=== PATIENT | female | born 1930 | race Caucasian/White ===

== ENCOUNTER 2018-05-22 21:11 | Inpatient (IN) | payer OTHER ==
[~2018-05-22] VITALS: Ht 152.4 cm; Wt 37.7 kg
[~2018-05-22 21:11] MED LIST: CLINDAMYCIN300 M1 PO; CORGARD80 MG PO; COUMADIN1 MG PO; COUMADIN2 MG PO; LAC PO; LASIX20 MG PO; LEVAQUIN750 MG PO; NORCO1 TA2 PO; POTASSIUM CHLO20 MEQ PO; PRILOSEC20 MG PO; SEROQUEL25 MG PO; STALEVO PO
[2018-05-22 21:16] VITALS: Ht 152.4 cm; Wt 37.7 kg
[2018-05-22 22:10] LABS: BASOPHIL % 0.3 % (0-2); PLATELET COUNT 171 x10^3mcL (130-400); RED CELL DISTRIBUTION WIDTH 14.4 % (11.5-14.5)
[2018-05-22 22:36] LABS: CALCIUM 7.9 mg/dL (8.5-10.1); CARBON DIOXIDE 28.5 mmol/L (21-32); CHLORIDE SERUM 93 mmol/L (98-107); CREATININE SERUM 0.9 mg/dL (0.6-1.0); GLUCOSE SERUM 85 mg/dL (74-106); POTASSIUM SERUM 4.1 mmol/L (3.5-5.1); SODIUM SERUM 128 mmol/L (136-145)
[2018-05-22 22:49] LABS: ALBUMIN 2.8 g/dL (3.4-5.0); ALKALINE PHOSPHATASE 64 U/L (46-116); ALT/SGPT 11 U/L (14-59); AST/SGOT 28 U/L (15-37); BILIRUBIN TOTAL 0.48 mg/dL (0.20-1.00); LIPASE 217 IU/L (73-393); TOTAL PROTEIN, SERUM 5.7 g/dL (6.4-8.2)
[2018-05-22] MEDS ORDERED: SEROQUEL25 MG (23:13)
[2018-05-23] VITALS (7 sets, daily range): BP systolic 132–166; BP diastolic 61–107
[2018-05-23 00:03] LABS: PHOSPHOROUS 3.9 mg/dL (2.5-4.9)
[2018-05-23 00:08] LABS: T3 TOTAL 0.71 ng/mL
[2018-05-23 00:09] LABS: FREE T4 1.31 ng/dL (0.76-1.46); FREE THYROXINE INDEX 2.8 ug/dL (1.4-4.5); T4(THYROXINE) 7.4 ug/dL (4.7-13.3)
[2018-05-23 00:13] LABS: microscopic required? YES; urine erythrocyte TRACE (NEGATIVE)
[2018-05-23 00:25] LABS: AMPHETAMINE QUAL UR NONE DETECTED (See below)
[2018-05-23 06:40] LABS: BASOPHIL % 0.1 % (0-2); PLATELET COUNT 180 x10^3mcL (130-400); RED CELL DISTRIBUTION WIDTH 13.3 % (11.5-14.5)
[2018-05-23 06:55] LABS: CARBON DIOXIDE 24.3 mmol/L (21-32); CHLORIDE SERUM 95 mmol/L (98-107); CREATININE SERUM 0.8 mg/dL (0.6-1.0); GLUCOSE SERUM 77 mg/dL (74-106); MAGNESIUM 1.9 mg/dL (1.8-2.4); PHOSPHOROUS 3.6 mg/dL (2.5-4.9); POTASSIUM SERUM 3.9 mmol/L (3.5-5.1); SODIUM SERUM 130 mmol/L (136-145)
[2018-05-24 05:11] VITALS: BP 174/82
[2018-05-24 07:13] LABS: CALCIUM 7.9 mg/dL (8.5-10.1); CARBON DIOXIDE 24.7 mmol/L (21-32); CHLORIDE SERUM 98 mmol/L (98-107); CREATININE SERUM 0.8 mg/dL (0.6-1.0); GLUCOSE SERUM 80 mg/dL (74-106); MAGNESIUM 1.8 mg/dL (1.8-2.4); PHOSPHOROUS 3.6 mg/dL (2.5-4.9)
[2018-05-24 07:22] LABS: BASOPHIL % 0.4 % (0-2); PLATELET COUNT 153 x10^3mcL (130-400); RED CELL DISTRIBUTION WIDTH 14.5 % (11.5-14.5)
[2018-05-24 07:29] LABS: POTASSIUM SERUM 3.6 mmol/L (3.5-5.1); SODIUM SERUM 129 mmol/L (136-145)
[2018-05-24 07:57] VITALS: BP 164/79
[2018-05-24 11:46] VITALS: BP 156/81
[2018-05-24 16:46] VITALS: BP 175/78
[2018-05-24 21:20] VITALS: BP 133/64
[2018-05-25 05:40] VITALS: BP 156/86
[2018-05-25 06:56] LABS: CALCIUM 7.8 mg/dL (8.5-10.1); CHLORIDE SERUM 101 mmol/L (98-107); CREATININE SERUM 0.8 mg/dL (0.6-1.0); GLUCOSE SERUM 81 mg/dL (74-106); POTASSIUM SERUM 3.6 mmol/L (3.5-5.1); SODIUM SERUM 134 mmol/L (136-145)
[2018-05-25 07:01] LABS: BASOPHIL % 0.3 % (0-2); PLATELET COUNT 163 x10^3mcL (130-400); RED CELL DISTRIBUTION WIDTH 14.4 % (11.5-14.5)
[2018-05-25 09:35] VITALS: BP 149/76
[2018-05-25 18:36] VITALS: BP 157/66
[2018-05-25 21:35] VITALS: BP 151/67
[2018-05-26] VITALS (7 sets, daily range): BP systolic 148–169; BP diastolic 72–92
[2018-05-27 05:34] VITALS: BP 149/78
[2018-05-27 09:21] VITALS: BP 165/61
[2018-05-27 13:10] VITALS: BP 153/82
[2018-05-27] MEDS ORDERED: APR25 PO (13:43)
[2018-05-27] MEDS ORDERED: LOP50 PO (13:43)
[2018-05-27] MEDS ORDERED: AMERINET CHOICE1 PD2 IV (13:44)
[2018-05-27 17:29] VITALS: BP 151/85
== END 2018-05-27 19:58 | DRG 177 ==
LOC: ED 21:11 → DU 23:43
PROVIDERS: Emergency Medicine; Internal Medicine; Podiatrist Foot & Ankle Surgery
DX: J69.0 Pneumonitis due to inhalation of food and vomit (principal); E43 Unspecified severe protein-calorie malnutrition; G93.41 Metabolic encephalopathy; N17.0 Acute kidney failure with tubular necrosis; N39.0 Urinary tract infection, site not specified; Z68.1 Body mass index [BMI] 19.9 or less, adult; E87.1 Hypo-osmolality and hyponatremia; D68.59 Other primary thrombophilia; B96.20 Unspecified Escherichia coli [E. coli] as the cause of diseases classified elsewhere; B96.4 Proteus (mirabilis) (morganii) as the cause of diseases classified elsewhere; G20 Parkinson's disease; E86.0 Dehydration; M62.50 Muscle wasting and atrophy, not elsewhere classified, unspecified site; I10 Essential (primary) hypertension; Z66 Do not resuscitate; G30.9 Alzheimer's disease, unspecified; F02.80 Dementia in other diseases classified elsewhere, unspecified severity, without behavioral disturbance, psychotic disturbance, mood disturbance, and anxiety; Z95.810 Presence of automatic (implantable) cardiac defibrillator
CPT/HCPCS: 83880; 84439; 97110-GP; 97535-GP; J0696; J2543; J3490; J7030; J7040; Q0092